=== PATIENT | female | born 1990 | race Asian ===

== ENCOUNTER 2019-07-05 14:40 | Inpatient (IN) | payer OTHER ==
[2019-07-05] MEDS ORDERED: ELECTROLYTE-148 SOLN 1,000 ML IV SCH (15:00)
[2019-07-05 15:28] LABS: BASO % 0.5 % (0-2.0); EOS % 1.3 % (0-4.5); HEMATOCRIT 28.7 % (32.4-45.2); HEMOGLOBIN 9.4 GM/dL (10.7-15.3); LYMPH % 18.9 % (8-40); MCH 23.4 pg (25.7-33.7); MCHC 32.6 g/dl (32.0-36.0); MEAN CELL VOLUME 71.8 fl (80-96); MEAN PLT VOLUME 6.6 fl (7.5-11.1); MONO % 5.3 % (3.8-10.2); PLATELET COUNT 352 K/MM3 (134-434); RDW 18.1 % (11.6-15.6)
[2019-07-05 15:40] LABS: INR 1.01 (0.83-1.09); PROTHROMBIN TIME (PATIENT) 11.9 SEC (9.7-13.0)
[2019-07-05 15:43] VITALS: BMI 25.2
[2019-07-05 15:43] LABS: ACTIVATED PTT 27.2 SECONDS (25.2-36.5)
[2019-07-05] MEDS ORDERED: CITRIC ACID/SODIUM CITRATE 30 ML UNIT-DOSE CUP PO ONE (15:47)
--- NOTE | 2019-07-05 15:54 | HP ---
Past Medical History - Admission History Source: Patient Limitations to Obtaining History: No Limitations - Past Medical History ...: 4 ...Para: 2 ...Term: 2 ...: 0 ...Spon : 1 ...Induced : 0 ...Multiple Gestation: 0 ...EDC by Sono: 07/28/19 - Past Surgical History Past Surgical History: Yes: Hx Myomectomy: No Hx Transabdominal Cerclage: No - Smoking History Smoking history: Never smoked Have you smoked in the past 12 months: No - Alcohol/Substance Use Hx Alcohol Use: No - Social History Usual Living Arrangement: Yes: With Spouse History of Recent Travel: No Home Medications - Allergies Allergies/Adverse Reactions: Allergies Allergy/AdvReac Type Severity Reaction Status Date / Time aspirin Allergy Severe Difficulty Verified 07/05/19 14:57 Breathing - Home Medications Home Medications: Ambulatory Orders Ferrous Sulfate 1 tab PO BID 07/05/19 Prenat 115/Iron Fum/Folic/Dss [ 19 Tablet] 1 tab PO DAILY 07/05/19 Review of Systems - Review of Systems Constitutional: reports: No Symptoms Eyes: reports: No Symptoms HENT: reports: No Symptoms Neck: reports: No Symptoms Cardiovascular: reports: No Symptoms Respiratory: reports: No Symptoms Gastrointestinal: reports: No Symptoms Genitourinary: reports: No Symptoms Breasts: reports: No Symptoms Reported Musculoskeletal: reports: No Symptoms Integumentary: reports: No Symptoms Neurological: reports: No Symptoms Endocrine: reports: No Symptoms Hematology/Lymphatic: reports: No Symptoms Psychiatric: reports: No Symptoms Pain Intensity: 5 Physical Exam - Maternity Vital Signs: Vital Signs Temperature 97.9 F 07/05/19 15:33 Pulse Rate 111 H 07/05/19 15:33 Respiratory Rate 22 H 07/05/19 15:33 Blood Pressure 120/72 07/05/19 15:33 O2 Sat by Pulse Oximetry (%) Constitutional: Yes: Well Nourished, Moderate Distress Eyes: Yes: WNL HENT: Yes: WNL Neck: Yes: WNL Cardiovascular: Yes: WNL Lungs: Clear to auscultation Breast(s): Yes: WNL - Abdominal Exam/OB Fundal Height: 37 Number of Fetuses: Single Presentation: Other (Vx? Hx of recent breech presentation.) Regularity: Regular Intensity: Mild/Mod Monitor Mode: External Heart Rate Location: [facility] Category: I Accelerations: Uniform Decelerations: None - Vaginal Exam/OB Vaginal Bleediing: No Speculum Exam: No Dilatation (cm): 0 Effacement (%): 20 Amniotic Membrane Status: Intact Station: -3 - Physical Exam Musculoskeletal: Yes: WNL Extremities: Yes: WNL Integumentary: Yes: WNL ...Motor Strength: WNL Psychiatric: Yes: WNL - Labs Lab Results: CBC, BMP 07/05/19 15:16 Problem List - Problems (1) Failed trial of labor following previous , antepartum Code(s): O66.41 - FAILED ATTEMPT VAGINAL AFTER PREVIOUS DEL Assessment/Plan Intrauterine 36w 5d, in labor. Previous c/section x 2. Repeat c/section planned. Anesthesia, OR, PA notified. No tubal sterilization. No desire to do TOLAC/. Alternatives, all risks, possible complications reviewed with patient who understands and consents.
[2019-07-05 15:58] LABS: BLOOD UREA NITROGEN 7.1 mg/dL (7-18); CALCIUM 8.2 mg/dL (8.5-10.1); CREATININE 0.4 mg/dL (0.55-1.3); POTASSIUM 3.7 mmol/L (3.5-5.1)
[2019-07-05] MEDS ORDERED: OXYTOCIN 20 UNITS in 0.9% NS 20 UNIT/1,000 ML INFUS.BAG IV ONE ×2 (16:19→17:54)
[2019-07-05] MEDS ORDERED: PHENYLEPHRINE HCL 10 MG/1 ML SINGLE DOSE VIAL ONE (16:24)
[2019-07-05] MEDS ORDERED: morphine SULFATE/PF 0.5 MG/ML (2cc Syringe - QUVA) ONE (16:24)
[2019-07-05] MEDS ORDERED: ONDANSETRON 4 MG/2 ML VIAL IVPUSH PRN (16:29)
[2019-07-05] MEDS ORDERED: ACETAMINOPHEN 325 MG TABLET (FP) PO PRN (16:29)
[2019-07-05] MEDS ORDERED: MIDAZOLAM HCL 2 MG/2 ML SINGLE DOSE VIAL ONE (16:58)
[2019-07-05] MEDS: OXYTOCIN 20 UNITS in 0.9% NS 20 UNIT/1,000 ML INFUS.BAG IV SCH ×2 (17:05→17:45)
[2019-07-05] MEDS ORDERED: ceFAZolin SODIUM 1 GM VIAL ONE ×2 (17:11)
[2019-07-05] MEDS ORDERED: oxyCODONE HCL 5 MG TABLET PO PRN (17:48)
[2019-07-05] MEDS ORDERED: METHYLERGONOVINE MALEATE 0.2 MG/1 ML AMP IM PRN ×2 (17:48→18:21)
--- NOTE | 2019-07-05 17:48 | OP ---
Operative Note - Note: Operative Date: 07/05/19 Pre-Operative Diagnosis: IUP 36d 5d, in labor. Previous c/section x 2. Operation: Repeat c/section; low, transverse. Excision of keloid with wound plasty. Post-Operative Diagnosis: Same as Pre-op Surgeon: Jose Garcia Health Services Manager: Sergio Mcguire Anesthesiologist/CROP SETTING OUT MACHINE OPERATOR: Galileo Kothari Anesthesia: Spinal Specimens Removed: scar. placenta Estimated Blood Loss (mls): 550 Operative Report Dictated: Yes
[2019-07-05] MEDS ORDERED: SIMETHICONE 80 MG TAB.CHEW (FP) PO PRN (18:21)
[2019-07-05] MEDS ORDERED: IBUPROFEN 600 MG TABLET (FP) PO PRN (18:21)
[2019-07-05] MEDS ORDERED: IBUPROFEN 800 MG/8 ML IJ IVPB PRN (18:46)
[2019-07-05] MEDS: ACETAMINOPHEN 1000 MG/100 ML VIAL (NON FORMULARY) IVPB PRN (18:50)
--- NOTE | 2019-07-05 22:26 | SURG ---
Surgery Ep Tech Note Ep Tech: Sergio Mcguire PA-C Date of Service: 07/05/19 Diagnosis: IUP 36d 5d, in labor. Previous c/section x 2. Procedure: Repeat c/section; low, transverse. Excision of keloid with wound plasty I was present for the entirety of the operative procedure. For further detail, please refer to operative report. Visit type - New patient This patient is new to me today: Yes Date on this admission: 07/05/19
[2019-07-06] MEDS: ACETAMINOPHEN 1000 MG/100 ML VIAL (NON FORMULARY) IVPB PRN (06:30)
--- NOTE | 2019-07-06 08:02 | PN ---
Progress Note (short form) - Note Progress Note: 29yo F s/p POD 1, pt seen and examined at bedside. Pt states she is feeling well and abd pain is controlled. Resendez still in place so has not ambulated yet. Pt denies fever, chills, n/v. Last Vital Signs Temp Pulse Resp BP Pulse Ox 98.7 F 74 18 99/57 L 97 07/06/19 06:00 07/06/19 06:00 07/06/19 06:00 07/06/19 06:00 07/05/19 20:00 CBC, BMP 07/05/19 15:16 07/05/19 15:16 PE: Gen: A&O x3 Resp: breathing comfortably Abd: soft, mild lower abd tenderness, incision clean no erythema or discharge, abd gravid Ext: no edema Problem List - Problems (1) Failed trial of labor following previous , antepartum Assessment/Plan: Plan -d/c resendez, TOV -oob/ambulate -pain control -regular diet Will follow. Code(s): O66.41 - FAILED ATTEMPT VAGINAL AFTER PREVIOUS DEL
--- NOTE | 2019-07-06 08:33 | PN ---
Post Progress Note Post Day: 1 Type of Delivery: Repeat C/S Vital Signs: Vital Signs Temperature 98.7 F 07/06/19 06:00 Pulse Rate 74 07/06/19 06:00 Respiratory Rate 18 07/06/19 08:00 Blood Pressure 99/57 L 07/06/19 06:00 O2 Sat by Pulse Oximetry (%) 97 07/05/19 20:00 Breast Exam: Yes: Soft Uterus: Yes: Fundus Firm Incision: Yes: Dressing dry and intact Abdomen/GI: Yes: Abdomen soft Lochia: Yes: Rubra Lochia, amount: Small Extremities: Yes: Calves non-tender - Labs Labs: CBC WBC 10.0 K/mm3 (4.0-10.0) 07/05/19 15:16 RBC 4.00 M/mm3 (3.60-5.2) 07/05/19 15:16 Hgb 9.4 GM/dL (10.7-15.3) L 07/05/19 15:16 Hct 28.7 % (32.4-45.2) L 07/05/19 15:16 MCV 71.8 fl (80-96) L 07/05/19 15:16 MCH 23.4 pg (25.7-33.7) L 07/05/19 15:16 MCHC 32.6 g/dl (32.0-36.0) 07/05/19 15:16 RDW 18.1 % (11.6-15.6) H 07/05/19 15:16 Plt Count 352 K/MM3 (134-434) 07/05/19 15:16 MPV 6.6 fl (7.5-11.1) L 07/05/19 15:16 Absolute Neuts (auto) 7.4 K/mm3 (1.5-8.0) 07/05/19 15:16 Neutrophils % 74.0 % (42.8-82.8) 07/05/19 15:16 Lymphocytes % 18.9 % (8-40) 07/05/19 15:16 Monocytes % 5.3 % (3.8-10.2) 07/05/19 15:16 Eosinophils % 1.3 % (0-4.5) 07/05/19 15:16 Basophils % 0.5 % (0-2.0) 07/05/19 15:16 Nucleated RBC % 0 % (0-0) 07/05/19 15:16 Other Findings, Remarks: Excellent recovery. Breast feeding and pumping. Incision clean and dry. BS pos. No cva, extremities T. NO circumcision. Pt and her are very happy and appreciative of care. Problem List - Problems (1) Failed trial of labor following previous , antepartum Code(s): O66.41 - FAILED ATTEMPT VAGINAL AFTER PREVIOUS DEL (2) care following delivery Code(s): Z39.2 - ENCOUNTER FOR ROUTINE FOLLOW-UP Assessment/Plan Excellent recovery. OOB. Gardiner out stat. Diet as tolerated.
[2019-07-06 08:42] LABS: BASO % 0.3 % (0-2.0); EOS % 0.5 % (0-4.5); HEMATOCRIT 27.7 % (32.4-45.2); HEMOGLOBIN 8.9 GM/dL (10.7-15.3); LYMPH % 13.8 % (8-40); MCHC 32.1 g/dl (32.0-36.0); MEAN CELL VOLUME 71.5 fl (80-96); MONO % 7.5 % (3.8-10.2); NEUT % 77.9 % (42.8-82.8); PLATELET COUNT 305 K/MM3 (134-434); RBC 3.88 M/mm3 (3.60-5.2); RDW 17.9 % (11.6-15.6); WHITE BLOOD COUNT 10.6 K/mm3 (4.0-10.0)
[2019-07-06] MEDS: ACETAMINOPHEN 325 MG TABLET (FP) PO PRN ×3 (11:40→21:44)
[2019-07-06] MEDS: IBUPROFEN 600 MG TABLET (FP) PO PRN ×3 (11:40→21:45)
--- NOTE | 2019-07-06 13:03 | OP ---
DATE OF OPERATION: DATE OF DICTATION: 07/05/2019 PREOPERATIVE DIAGNOSES: 1. Intrauterine at term, 36 weeks and 5 day, in labor. 2. Previous section x2. POSTOPERATIVE DIAGNOSES: 1. Intrauterine at term, 36 weeks and 5 day, in labor. 2. Previous section x2. PROCEDURES: 1. Repeat low segment transverse section. 2. Incisional keloid with woundplasty. ANESTHESIA: Galileo Kothari MD NEONATOLOGY: [place] MD SURGEON: Vaishnavi Moreno MD HEAT TRANSFER TECHNICIAN: NOE Salomon PROCEDURE AND FINDINGS: Under excellent spinal block in dorsal supine position with left lateral tilt, patient was prepped and draped in normal fashion. Keloid was excised in a wedge-like fashion. Subcutaneous tissue was divided, and fascia was opened transversely. Recti muscles were dissected off the fascia. They were fused in the midline, and they were sharply. Peritoneum was opened carefully in the upper part of the incision and extended vertically. Bladder flap was incised and peeled downward. Hysterotomy was placed transversely and extended with bandage scissors. Clear amniotic fluid was noted. Male live was delivered without any complications. Baby cried, breathed, and urinated spontaneously. Delayed cord clamping was done, and baby was handed over to the chief steward/stewardess. Placenta was removed, and uterine cavity was cleaned. Cervix was dilated using sponge stick. Hysterotomy was closed with continuous, running, interlocking Vicryl 1 suture. Pelvis was lavaged and thoroughly examined. Hemostasis was excellent. First count was correct. Abdomen was closed in layers. Peritoneum was closed with continuous running 2-0 Vicryl suture. Fascia was closed with continuous, running Vicryl 1 suture. Subcutaneous tissue was approximated with 3-0 Biosyn multiple sutures that would bring the edges of the incision closer. Incision was closed with a continuous, running subcuticular 2-0 V-Lock suture. Steri-Strips were applied. Dressing was placed on the wound and held in place with a binder. Urine was clear in the Gardiner catheter bag, and it was copious. Estimated blood loss was 550 mL. In stable condition, patient was transferred to the PACU. VAISHNAVI MORENO MD JR/[id number]
--- NOTE | 2019-07-06 13:49 | PN ---
Progress Note (short form) - Note Progress Note: POD1 s/p csection under spinal with duramorph. Pt states pain is well controlled; was able to ambulate, with no LEVI, back pain, N/V. No anesthetic issues/complications noted.
[2019-07-06] MEDS: SIMETHICONE 80 MG TAB.CHEW (FP) PO PRN ×2 (15:53→21:44)
[2019-07-06] MEDS ORDERED: BISACODYL 10 MG SUPP.RECT RC PRN ×2 (17:49→18:21)
[2019-07-07] MEDS: ACETAMINOPHEN 325 MG TABLET (FP) PO PRN ×4 (04:56→20:52)
[2019-07-07] MEDS: SIMETHICONE 80 MG TAB.CHEW (FP) PO PRN ×3 (04:57→16:55)
[2019-07-07] MEDS: IBUPROFEN 600 MG TABLET (FP) PO PRN ×4 (04:57→20:52)
[2019-07-07] MEDS: FLU VACC QS2019-20(6MOS UP)/PF 60 MCG/0.5 ML SYRINGE IM ONE ×2 (09:13→10:05)
[2019-07-07] MEDS: DIPHTH,PERTUSS(ACELL),TET 0.5 ML DISP.SYRIN IM ONE ×2 (09:13→10:01)
--- NOTE | 2019-07-07 09:29 | PN ---
Progress Note (short form) - Note Progress Note: POD # 2. VSS. Doing very well. Incision clean and dry. Anticipating discharge tomorrow. Problem List - Problems (1) Failed trial of labor following previous , antepartum Code(s): O66.41 - FAILED ATTEMPT VAGINAL AFTER PREVIOUS DEL (2) care following delivery Code(s): Z39.2 - ENCOUNTER FOR ROUTINE FOLLOW-UP
[2019-07-07] MEDS ORDERED: FLU VACCINE QUAD 60 MCG/0.5 ML (MDV 19-20) IM ONE (10:00)
--- NOTE | 2019-07-07 12:48 | PN ---
Progress Note (short form) - Note Progress Note: 29yo F s/p , seen and examined at bedside. Pt states that her pain is well controlled and that she has been ambulating well. Pt denies n/v, fever, chills. Last Vital Signs Temp Pulse Resp BP Pulse Ox 97.9 F 82 18 111/64 97 07/07/19 09:06 07/07/19 09:06 07/07/19 09:06 07/07/19 09:06 07/05/19 20:00 CBC, BMP 07/06/19 08:03 07/05/19 15:16 PE: Gen: A&O x 3 Resp: breathing comfortably Abd: soft, mild lower tenderness, abd gravid Ext: no edema Problem List - Problems (1) Failed trial of labor following previous , antepartum Assessment/Plan: Plan -pt is doing well, will plan for discharge tomorrow -oob/ambulate -pain control Code(s): O66.41 - FAILED ATTEMPT VAGINAL AFTER PREVIOUS DEL
--- NOTE | 2019-07-08 07:09 | PN ---
Progress Note (short form) - Note Progress Note: POD#3. Pt feels great. . On advice of her straw hat washer operator she wants to stey till tomorrow to [place] PE excellent. Abd. soft. Incision clean and dry. Uterus firm, contracted. Lochia WNL. No cva, extremities T. Breast OK, engorged. I/P: Doing very well. Instructions given. Discharge tomorrow AM. Problem List - Problems (1) Failed trial of labor following previous , antepartum Code(s): O66.41 - FAILED ATTEMPT VAGINAL AFTER PREVIOUS DEL (2) care following delivery Code(s): Z39.2 - ENCOUNTER FOR ROUTINE FOLLOW-UP
[2019-07-08] MEDS: SIMETHICONE 80 MG TAB.CHEW (FP) PO PRN ×2 (08:07→20:28)
[2019-07-08] MEDS: ACETAMINOPHEN 325 MG TABLET (FP) PO PRN ×2 (08:08→20:29)
[2019-07-08] MEDS: IBUPROFEN 600 MG TABLET (FP) PO PRN ×3 (08:08→20:28)
[2019-07-08 08:48] LABS: BASO % 0.4 % (0-2.0); EOS % 3.6 % (0-4.5); HEMATOCRIT 26.3 % (32.4-45.2); HEMOGLOBIN 8.4 GM/dL (10.7-15.3); LYMPH % 13.8 % (8-40); MCH 22.9 pg (25.7-33.7); MEAN CELL VOLUME 71.4 fl (80-96); MEAN PLT VOLUME 6.8 fl (7.5-11.1); MONO % 5.9 % (3.8-10.2); NEUT % 76.3 % (42.8-82.8); PLATELET COUNT 347 K/MM3 (134-434); RBC 3.68 M/mm3 (3.60-5.2); RDW 18.4 % (11.6-15.6)
[2019-07-09] MEDS: IBUPROFEN 600 MG TABLET (FP) PO PRN (03:22)
[2019-07-09] MEDS: ACETAMINOPHEN 325 MG TABLET (FP) PO PRN (03:22)
[2019-07-09] MEDS: SIMETHICONE 80 MG TAB.CHEW (FP) PO PRN (03:22)
[2019-07-09 10:45] VITALS: BP 136/69; PULSE 84; TEMP 98
--- NOTE | 2019-07-12 16:42 | PATH ---
Surgical Pathology Report Patient Name: OLIMPIA CRABTREE Med. Rec. #: [id number] /Age/Gender: 1990 (Age: 29) / F Account: [id number] Location: [facility] OBS/PHOTO MASK INSPECTOR Taken: 07/05/2019 Received: 07/06/2019 Reported: 07/12/2019 Physicians: Jose Garcia MD Specimen(s) Received PLACENTA Clinical History , x2 Final Diagnosis PLACENTA, SECTION: 428 G THIRD TRIMESTER PLACENTA WITH TRIVASCULAR UMBILICAL CORD AND FOCAL MILD ACUTE CHORIOAMNIONITIS. Electronically Signed Li Gore M.D. Gross Description The specimen is received fresh labeled placenta and is a 428 gram, 18.0 x 15.0 x 2.8 cm. placenta with attached membranes and umbilical cord. The attached membranes are winters, thick, cloudy and insert marginally. The umbilical cord measures 23 cm. in length and averages 1.1 cm. in diameter. The cord inserts eccentrically, 4 cm. to the nearest margin. No true knots or strictures are identified. Cut surface of the umbilical cord reveals 3 vessels. The surface is reddy-blue with minimal fibrin deposition and appropriate caliber vessels. The maternal surface is red-brown with focal defects. Sectioning reveals red-brown, spongy parenchyma. No lesions are identified. Furniture Fabricator sections are submitted in three cassettes as follows: 1- membrane rolls and umbilical cord; 2-3- full thickness sections of placenta. 07/10/2019 [facility]07/10/2019
== END 2019-07-09 14:15 | disposition home or self-care (01) | DRG 540 ==
LOC: JLDR 14:40 → J3W 20:00
PROVIDERS: ADMIT Obstetrics & Gynecology; ATTEND Specialist
PROC: 10D00Z1 Extraction of Products of Conception, Low, Open Approach (ICD-10-PCS; principal; 2019-07-05)
PROC: 0HB7XZZ Excision of Abdomen Skin, External Approach (ICD-10-PCS; 2019-07-05)
DX: O34.211 Maternal care for low transverse scar from previous cesarean delivery (principal); O66.41 Failed attempted vaginal birth after previous cesarean delivery; O75.89 Other specified complications of labor and delivery; L91.0 Hypertrophic scar; Z3A.36 36 weeks gestation of pregnancy; Z37.0 Single live birth
CPT/HCPCS: 36415; 80048; 85025; 85610; 85730; 86593; 86850; 86900; 86901; 88307-TC; 90686; 90715; J0131